=== PATIENT | male | born 1950 | race American Indian/Alaskan Native ===

== ENCOUNTER 2019-08-14 10:28 | Outpatient (CLI) | payer MEDICARE ==
--- NOTE | 2019-08-14 16:01 | Cat Scan Report ---
CTA ABDOMEN AND PELVIS HISTORY: Iliac artery aneurysm. COMPARISON: None. TECHNIQUE: Noncontrast CT abdomen obtained. Routine postcontrast CT angiography of the abdomen and p rachel performed. Multiplanar/MIP/3D reformats were post-processed. CONTRAST: 100 ml of Omnipaque 350. Consent was obtained prior to the administration of the contrast. FINDINGS: CTA ABDOMEN: Abdominal Aorta: Tortuosity of the upper abdominal aorta but no aneurysm or stenosis. Celiac Artery: No significant abnormality. Superior Mesenteric Artery: No significant abnormality. Renal Arteries: Right: No significant abnormality. Left: No significant abnormality. Inferior Mesenteric Artery: No significant abnormality. CTA PELVIS: RIGHT: Common Iliac Artery: Fusiform aneurysm originates approximately 2 cm from its origin, measures 2.2 cm maximum diameter and extends to the bifurcation (approximately 4 cm in length). Internal Iliac Artery: No significant abnormality. External Iliac Artery: No significant abnormality. LEFT: Common Iliac Artery: No significant abnormality. Internal Iliac Artery: No significant abnormality. External Iliac Artery: No significant abnormality. NONTARGET STRUCTURES: ABDOMEN: GI:Diverticulosis but no signs of diverticulitis. Normal appendix. :No significant abnormality. Lymphatics:No significant abnormality. PELVIS: :No significant abnormality. Osseous Structures: No significant abnormality. Additional Findings: None IMPRESSION: 1. 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 2. Diverticulosis but no signs of diverticulitis. 3. No other significant finding. Signer Name: Ron Siddiqui MD Signed: 08/14/2019 3:57 PM Workstation Name: [id number]
== END 2019-08-14 10:29 | disposition home or self-care (01) ==
LOC: CT 10:28
PROVIDERS: ATTEND Radiology Diagnostic Radiology
DX: K57.30 Diverticulosis of large intestine without perforation or abscess without bleeding (principal); I72.3 Aneurysm of iliac artery
CPT/HCPCS: 74174; Q9967